=== PATIENT | female | born 1965 | race Caucasian/White ===

== ENCOUNTER 2018-05-16 16:52 | Emergency (ER) | payer MEDICAID, SELFPAY ==
[2018-05-16 16:53] VITALS: BP 149/76; PULSE 84; RESP 16; TEMP 36.4; O2SAT 99; BMI 31.7
--- NOTE | 2018-05-16 17:14 | EKG12_ITS ---
Test Reason : MENTAL HEALTH Blood Pressure : / mmHG Vent. Rate : 080 BPM Atrial Rate : 080 BPM P-R Int : 170 ms QRS Dur : 082 ms QT Int : 378 ms P-R-T Axes : 068 066 064 degrees QTc Int : 435 ms Normal sinus rhythm Normal ECG Confirmed by REGULO TORRES, MARY ([id number]), assistant editor KAIA PARKER ([id number]) on 05/19/2018 1:34:11 PM Referred By: MARKO Confirmed By:MARY RAJPUT MD
[2018-05-16 18:02] LABS: Absolute Lymphocyte Count 2.54 X10^3/ul (0.83-4.51); Absolute Neutrophil Count 4.9 X10^3/uL (2.0-7.7); Basophil# 0.02 X10^3/uL; Basophil% 0.3 % (0-1); Eosinophils% 1.3 % (0-5); Hematocrit 40.9 % (37-47); Hemoglobin 14.2 g/dl (12.0-15.0); Lymphocyte # 2.54 X10^3/ul (4.0); Mean Corp Hgb Conc 34.7 g/gl (32-36); Mean Corpuscular Hgb 29.6 pg (27.0-32.0); Mean Corpuscular Volume 85.4 fL (81-99); Mean Platelet Vol. 9.9 fl (6.2-12.0); Neutrophil # 4.86 X10^3/uL (2.7-7.7); Neutrophil % 61.1 % (47-70); Platelet Count 281 K/mm3 (150-450); RBC Distribution Width CV 13.7 % (11.6-14.6); Red Blood Count 4.79 M/mm3 (4.2-5.4); White Blood Count 7.9 K/mm3 (4.4-11.0)
[2018-05-16 18:03] LABS: POSITIVE COUNT NO; POSITIVE DIFFERENTIAL NO; POSITIVE MORPHOLOGY NO
--- NOTE | 2018-05-16 18:07 | ED.VISSUMM ---
- ER Visit Summary Date of Service: 05/16/18 Chief Complaint: Anxiety, manic episode History of Present Illness: The patient is a 52 F with history of bipolar disorder. She had multiple medication changes in the past 2 months. She stopped her Depakote 4 days ago which she was on for bipolar. She is still taking Paxil, trazodone, and Xanax. Patient reports increased anxiety and thinks she is in a manic episode. She states she is sleeping because she does take trazodone, but yesterday was very active and cleaned her entire house. She normally takes Xanax but states that does not seem to be helping. She had been told by her counselor at the counseling center if she gets worse after stopping the Depakote she is to come to the emergency room. She denies suicidal thoughts to me. She states this morning she had visions of herself in situations where she might hurt herself. She has never attempted self-harm per her report. Physical Examination: Vital signs are unremarkable. Patient sitting upright in bed no acute distress. Head neck examination unremarkable. Heart is regular rate and rhythm. Lungs sounds are clear. Abdomen is soft nontender. Psychiatric evaluation reveals normal speech pattern. She makes good eye contact. She denies suicidal ideation at this time. Test Results: CBC is unremarkable. Chemistry studies significant for potassium 3.3. LFTs normal. Urinalysis normal. TSH normal. Tox and EtOH negative. EKG is sinus at 80 with no acute ischemia. Emergency Department Course and Treatment: Patient initially given 1 mg of p.o. Ativan. She stated this did not help her and was given a dose of p.o. Vistaril. Patient was given 60 mEq of potassium chloride. Patient was seen by Rosa M from the counseling center. Patient is very hesitant about discharge to home and is concerned about her safety and is afraid of having the bad thoughts that she had earlier this morning. Apparently she had thoughts of hanging herself and that was not originally relayed to me. Patient has been fluctuating in her decisions about her safety and I do not feel comfortable sending her at this time. She will be pink slipped and sent for further treatment. Treatment Plan: [] Disposition: Transfer Impression: 1. Hypomanic episode 2. Concern for self safety This note was generated with [employer] software. It may contain incorrect words, spelling, and punctuation that were not noted in review of the chart prior to signing
[2018-05-16 18:24] LABS: Alcohol, Blood (Medical)-Serum < 3.0 mg/dL
[2018-05-16 18:25] LABS: ALB/GLOB Ratio 1.3 RATIO (0.9-2.4); AST(SGOT) 14 U/L (15-37); Alanine Aminotransfer ALT/SGPT 21 U/L (13-56); Alkaline Phosphatase 54 U/L (45-117); Anion Gap 6 (5-15); BUN 9 mg/dL (7-18); BUN/Creat Ratio 9.8 RATIO (10-20); Calcium,Total 8.7 mg/dL (8.5-10.1); Chloride 106 mmol/L (98-107); Creatinine, Serum 0.92 mg/dL (0.55-1.02); EST Glomerular Filtration Rate 69 mL/min (>60); Est Glom Filt Rate - Afr Amer 83 mL/min (>60); Estimated Creatinine Clearance 76.45 ml/min; Globulin 3.1 g/dL (2.2-4.2); Glucose 120 mg/dL (74-106); Potassium 3.3 mmol/L (3.5-5.1); Protein, Total 7.1 g/dL (6.4-8.2); Sodium Level 137 mmol/L (136-145); Thyroid Stim Hormone (TSH) 0.61 uIU/mL (0.358-3.74)
[2018-05-16] MEDS: LORazepam 1 MG Tablet PO (18:25)
[2018-05-16 18:31] LABS: Amphetamine Urine VISTA NEGATIVE (<1000 ng/mL); Barbiturate Urine VISTA NEGATIVE (< 200 ng/mL); Benzodiazepine Urine VISTA NEGATIVE (< 200 ng/mL); Cocaine Urine VISTA NEGATIVE (< 300 ng/mL); Ecstacy Urine VISTA NEGATIVE (< 500 ng/mL); Methadone Urine VISTA NEGATIVE (< 300 ng/mL); PCP Urine VISTA NEGATIVE (< 25 ng/mL); THC Urine VISTA NEGATIVE (< 50 ng/mL); Vista UDS pH Range 6
[2018-05-16 18:39] LABS: Mucous, Urine 0 SEEN /hpf (<or=2+); Red Blood Cells-Urine 0 SEEN /hpf (0-5); White Blood Cells 0 SEEN /hpf (0-5)
[2018-05-16 18:40] LABS: Color, Urine Straw (Yellow); Glucose, Dipstick Normal (Normal); Ketone-Dipstick Negative (Negative); Leukocyte Esterase-Dipstick Negative /ul (Negative); Nitrite-Dipstick Negative (Negative); Occult Blood-Urine Negative /ul (Negative); Protein-Dipstick Negative (Negative); Urine Bilirubin Dipstick Negative (Negative); Urine Clarity Clear (Clear); Urine Urobilinogen Normal (Normal); Urine pH 6.5 (5.0 - 8.0)
--- NOTE | 2018-05-16 18:46 | ED.RN ---
CALLED THE [facility] AND NOTIFIED THE ELECTRICAL CONTROLS DESIGNER THAT THIS PT NEEDS TO BE EVALUATED. ELECTRICAL CONTROLS DESIGNER STATED THE CRISIS COUNSELOR WILL BE HERE SOON SHE CAN.
[2018-05-16 18:47] LABS: Bacteria RARE /hpf (None Seen); Squamous Epithelial Cells - UA 0-5 SEEN /hpf (5-10)
--- NOTE | 2018-05-16 19:02 | ED.RN ---
TALK TO NORA FROM THE [facility] AND NOTIFIED HER THAT THIS PT IS HERE READY TO BE EVALUATED.
[2018-05-16 20:26] VITALS: BP 108/66; PULSE 71; RESP 16; O2SAT 98
[2018-05-16] MEDS: hydrOXYzine PAM 25 MG Capsule 50 MG PO (20:26)
--- NOTE | 2018-05-16 21:39 | ED.RN ---
DARCI FROM [facility] IS HERE TO SEE THIS PT NOW.
[2018-05-17] MEDS: Nicotine Polacrilex 2 MG GUM PO ×2 (00:32→09:12)
[2018-05-17 00:33] VITALS: BP 112/59; PULSE 68; RESP 16; O2SAT 98
[2018-05-17 04:39] VITALS: RESP 14
[2018-05-17 06:10] VITALS: BP 109/52; PULSE 76; RESP 16; O2SAT 96
[2018-05-17] MEDS: hydrOXYzine PAM 25 MG Capsule 50 MG PO (07:51)
[2018-05-17] MEDS: Paroxetine 20 MG Tablet PO (08:14)
[2018-05-17] MEDS: Loratadine 10 MG Tablet PO (08:14)
[2018-05-17] MEDS: Pantoprazole Sodium 40 MG Tablet PO (08:14)
[2018-05-17 10:10] VITALS: BP 138/79; PULSE 67; RESP 15; O2SAT 98
== END 2018-05-17 10:10 ==
LOC: ED 18:53
PROVIDERS: Emergency Provider Emergency Medicine; Family Provider Family Medicine; PCP Family Medicine
DX: F31.9 Bipolar disorder, unspecified (principal); F41.9 Anxiety disorder, unspecified; Z79.899 Other long term (current) drug therapy
CPT/HCPCS: 36415; 80048; 80053; 80307; 80320; 81001; 84443; 85025; 93005; 99281; G0480